=== PATIENT | male | born 1955 | race Caucasian/White ===

== ENCOUNTER → 2016-11-29 | Outpatient (CLI) | payer BC ==
[~2016-11-29] MED LIST: ALPRAZOLAM0.5 MG PO; AMITIZA8 MCG PO; CLONAZEPAM2 MG PO; COLACE 100100 MG/CAP PO; CYMBALTA30 MG PO; CYMBALTA60 MG PO; DEMEROL IM; DILAUDID4 MG IL; DURAGESIC50 MCG/HR TD; FENTANYL 100MCG TP; MAALOX EXTRA S360 ML PO; MEPERIDINE; MEPERIDINE PO; MULTIPLE VITAMI1 CAP PO; PHENERGAN 25 TA25 MG PO; SENNA1 TAB PO; TRIPLE OMEGA PO; XANAX0.25 MG PO; XANAX0.5 MG PO; ZOFRAN4 M1 PO; [UNRECOGNIZED DRUG - OTHER] PO; [UNRECOGNIZED DRUG - OTHER] PO
== END ==
LOC: BHSO 10:31
DX: F41.1 Generalized anxiety disorder (principal)

== ENCOUNTER → 2017-02-16 | Outpatient (CLI) | payer BC | LOC: MHCPAIN 13:47 | DX: G89.29 Other chronic pain (principal); R10.84 Generalized abdominal pain; M50.223 Other cervical disc displacement at C6-C7 level; M50.222 Other cervical disc displacement at C5-C6 level; M50.221 Other cervical disc displacement at C4-C5 level | CPT/HCPCS: G0463 ==

== ENCOUNTER → 2020-06-04 | Outpatient (CLI) | payer MEDICARE, OTHER ==
[2008-02-19 15:24] VITALS: BP 100/52
[~2020-06-04] VITALS: Ht 177.8 cm; Wt 106.0 kg
[~2020-06-04] MED LIST changes: +ELAVIL100 MG PO; +INDOCIN50 MG PO; +LAMICTAL200 MG PO; +NORVASC 10MG10 MG PO
[2020-06-04 13:09] VITALS: BP 161/90; PULSE 89
[2020-06-04 14:30] VITALS: BP 183/89; PULSE 84
== END ==
LOC: COL.RAD 12:56
DX: M51.16 Intervertebral disc disorders with radiculopathy, lumbar region (principal)
CPT/HCPCS: J3301

== ENCOUNTER → 2020-06-24 | Outpatient (CLI) | payer MEDICARE, OTHER ==
[2008-02-19 15:24] VITALS: BP 100/52
[~2020-06-24] VITALS: Ht 177.8 cm; Wt 106.5 kg
[2020-06-24 06:40] VITALS: BP 156/97; PULSE 78
[2020-06-24 07:45] VITALS: BP 162/94; PULSE 77
== END ==
LOC: COL.RAD 06:03
DX: M51.26 Other intervertebral disc displacement, lumbar region (principal)
CPT/HCPCS: J3301

== ENCOUNTER 2020-07-09 16:25 | Emergency (ER) | payer MEDICARE, OTHER ==
[2008-02-19 15:24] VITALS: BP 100/52
[~2020-07-09] VITALS: Ht 177.8 cm; Wt 106.8 kg
[2020-07-09 16:43] VITALS: BP 101/66; TEMP 98.1
[2020-07-09] MEDS ORDERED: CARAFATE S1 GM/10 ML PO (17:52)
[2020-07-09 19:21] VITALS: PULSE 86
== END 2020-07-09 18:02 | disposition home or self-care (01) ==
LOC: COL.ER 16:25
DX: K20.9 Esophagitis, unspecified (principal)

== ENCOUNTER → 2020-08-08 | Outpatient (CLI) | payer MEDICARE, OTHER ==
[2008-02-19 15:24] VITALS: BP 100/52
[~2020-08-08] VITALS: Ht 177.8 cm; Wt 106.7 kg
[~2020-08-08] MED LIST changes: +CARAFATE S1 GM/10 ML PO; +PROTONIX 40MG T40 MG PO
[2020-08-08 13:11] VITALS: BP 187/97; PULSE 87
[2020-08-08 14:05] VITALS: BP 183/93; PULSE 94
--- NOTE | 2020-08-08 14:20 | NUR ---
Pt out to car per wheelchair. Pt able to ambulate without difficulty. Pt up and into car without assistance.
== END ==
LOC: COL.RAD 13:00
DX: M51.26 Other intervertebral disc displacement, lumbar region (principal)
CPT/HCPCS: J3301; Q9965

== ENCOUNTER → 2023-02-16 | Outpatient (CLI) | payer MEDICARE ==
[2008-02-19 15:24] VITALS: BP 100/52
[~2023-02-16] VITALS: Ht 177.8 cm; Wt 111.0 kg
[~2023-02-16] MED LIST changes: +COZAAR 50MG50 MG/TAB PO; +DULCOLAX STOOL100 MG PO; +INDOCIN 25MG CA25 MG PO; +MULTI VITAMINS1 TAB PO; +NORCO 325 MG-51 TAB; +VITAMIN C500 MG PO
[2023-02-16 06:38] VITALS: BP 151/84; PULSE 72; TEMP 97.6
[2023-02-16 07:50] VITALS: BP 144/83; PULSE 78
== END ==
LOC: COL.RAD 06:04
DX: M51.26 Other intervertebral disc displacement, lumbar region (principal)
CPT/HCPCS: J3301